=== PATIENT | female | born 1945 | race Two or more races ===

== ENCOUNTER 2017-05-01 18:00 | Emergency (ER) | payer MEDICARE, MEDICAID ==
[~2017-05-01] VITALS: Ht 172.7 cm; Wt 81.6 kg
[2017-05-01 18:48] LABS: Urine RBC None Seen /hpf (0 - 4)
[2017-05-01 18:49] LABS: Basophils # (auto) 0.1 uL; Hemoglobin 12.4 g/dL (12.2-16.2); Monocytes # (auto) 0.5 uL
[2017-05-01 18:52] LABS: Basophils % (auto) 1.1 % (0.0-2.0); Eosinophils # (auto) 0.1 uL; Eosinophils % (auto) 0.7 % (0.0-7.0); Hematocrit 38.3 % (36.0-46.0); Lymphocytes # (auto) 1.6 uL; Mean Corpuscular Hgb Conc. 32.2 g/dL (32.0-36.0); Mean Corpuscular Volume 80.5 fL (80.0-100.0); Mean Platelet Volume 10.5 fL (6.9-10.8); Monocytes % (auto) 6.1 % (0.0-12.0); Neutrophils # (auto) 5.5 uL; Neutrophils % (auto) 71.1 % (37.0-80.0); Platelet Count (auto) 113 10^3/uL (140-450); Red Cell Distribution Width 15.6 % (11.8-14.3); White Blood Cell 7.8 10^3/uL (4.4-10.8)
[2017-05-01 19:09] LABS: Albumin 3.9 g/dL (3.4-5.0); Bilirubin, Total 0.2 mg/dL (0.2-1.0); Calcium 9.5 mg/dL (8.5-10.1); Potassium 3.7 mmol/L (3.5-5.1); Total Protein 7.6 g/dL (6.4-8.2)
[2017-05-01 19:16] LABS: Urine Bilirubin Negative (Negative); Urine Blood Negative /uL (Negative); Urine Glucose Normal (Normal); Urine Ketone Negative (Negative); Urine Mucus FEW (None Seen); Urine Nitrite Negative (Negative); Urine Urobilinogen Normal (Negative)
[2017-05-01 19:34] LABS: Urine Color Straw (Yellow)
[2017-05-01] MEDS ORDERED: PANTOPRAZOLE 40 MG/10 ML VIAL IV ONE (22:00)
[2017-05-01] MEDS ORDERED: KETOROLAC TROMETH 30 MG/ML 1ML VIAL IV ONE (22:00)
[2017-05-01 22:16] VITALS: BP 158/68
== END 2017-05-01 22:29 | disposition home or self-care (01) ==
LOC: EDBD 18:00 → ER 18:08
DX: K29.70 Gastritis, unspecified, without bleeding (principal); D69.6 Thrombocytopenia, unspecified; K59.00 Constipation, unspecified; E11.9 Type 2 diabetes mellitus without complications; Z90.710 Acquired absence of both cervix and uterus
CPT/HCPCS: 36415; 74176; 80053; 81001; 84484; 85025; 93005; 96374; 96375; 99285; C9113; J1885; J7030

== ENCOUNTER 2018-11-15 09:45 | Emergency (ER) | payer MEDICARE, MEDICAID ==
[~2018-11-15] VITALS: Ht 172.7 cm; Wt 89.8 kg
[2018-11-15 10:10] VITALS: BP 137/69
[2018-11-15] MEDS: KETOROLAC TROMETH 30 MG/ML 1ML VIAL IM ONE (11:20)
[2018-11-15] MEDS: traMADol HCL 50 MG TAB PO ONE (11:21)
== END 2018-11-15 12:50 | disposition home or self-care (01) ==
LOC: ER 09:48
DX: S00.83XA Contusion of other part of head, initial encounter (principal); S90.01XA Contusion of right ankle, initial encounter; E11.9 Type 2 diabetes mellitus without complications; E07.9 Disorder of thyroid, unspecified; Z90.710 Acquired absence of both cervix and uterus; W07.XXXA Fall from chair, initial encounter; Y93.89 Activity, other specified; Y99.8 Other external cause status; Y92.89 Other specified places as the place of occurrence of the external cause
CPT/HCPCS: 70450; 73610